=== PATIENT | female | born 1945 | race Hispanic/Latino ===

== ENCOUNTER 2017-12-13 12:48 | Outpatient (CLI) | payer MEDICARE ==
--- NOTE | 2017-12-13 14:58 | RAD ---
CERVICAL SPINE AP AND LATERAL STANDARD WITH FLEXION AND EXTENSION: Date: 12/13/17 HISTORY: M47.12 cervical spondylosis with myelopathy. COMPARISON: Cervical spine radiograph dated 10/03/17. FINDINGS: Anterolisthesis of C3 over C4 is similar to the comparison examination. This measures 3.0 mm in the n eutral position and 2.0 mm in extension, as well as 4.0 mm in flexion. In the neutral position, there is retrolisthesis of C5 over C6 2.0 mm with unchanged position and ext ension with normalization and flexion. This is due to degenerative disc space height loss. IMPRESSION: C3 over C4 anterolisthesis and C5 over C6 retrolisthesis, degenerative in nature, with translation wi th flexion and extension. POS: [facility]
--- NOTE | 2017-12-13 16:32 | MRI ---
NONCONTRAST MRI CERVICAL SPINE: 12/13/17 HISTORY: Neck pain with pain and numbness in bilateral hands and fingers for two weeks. Cervical spondylosis w ith myelopathy. COMPARISON: None available. FINDINGS: There is volume loss involving the visualized cerebellar hemispheres. There is partially empty sella turcica. Cervicomedullary junction has a normal appearance. There is mild heterogeneity of the bone m arrow. There straightening of the normal cervical lordotic curvature. There is slight anterolisthesis of C3 on C4 with slight retrolisthesis of C5 on C6. C2-3 level: There is mild disc osteophyte complex narrowing the ventral subarachnoid space. Facet hyp ertrophic changes are seen on the left. There is mild to moderate left sided neural foraminal narrowi ng. The right neural foramen is patent. C3-4 level: There is anterolisthesis of C3 on C4 as described above. There is a broad based disc oste ophyte complex with facet degenerative changes present. There is generalized narrowing of the central spinal canal with mild to moderate narrowing of the central spinal canal. There is flattening of the anterior aspect of the spinal cord. There is mild increased T2 weighted signal intensity seen in the spinal cord at this level without expansion of the cord, but findings are probably related to myelom alacia. Mild bilateral neural foraminal narrowing is present. C4-5 level: There is mild broad disc osteophyte complex with uncinate process hypertrophy greater on the left. There is mild right and moderate left sided neural foraminal narrowing. There is mild gener alized narrowing of the central spinal canal. Mild flattening of the anterior aspect of the spinal co rd is present, but there is no abnormal signal intensity in the spinal cord at this level. C5-6 level: There is slight retrolisthesis of C5 on C6. Loss of intervertebral disc height is noted. There is a broad based disc osteophyte complex noted narrowing the ventral subarachnoid space and res ulting in mild flattening of the spinal cord. Right neural foramen is patent, but there is mild to mo derate left sided neural foraminal narrowing. C6-7 level: There is a broad based disc osteophyte complex which narrows the ventral subarachnoid spa ce. There is mild right and mild to moderate left sided neural foraminal narrowing. C7-T1 level: There is a mild disc osteophyte complex, but central spinal canal is patent. Neural fora jack are not well imaged due to slice selection, but there is at least mild bilateral neural foramina l narrowing. Uncinate process hypertrophy is present on the right and there may potentially be modera te right sided neural foraminal narrowing. T1-2 level: There is trace anterolisthesis of T1 on T2. Broad based disc osteophyte complex is presen t with facet hypertrophic changes. Findings narrow the ventral subarachnoid space and there appears t o be moderate right and moderate bilateral neural foraminal narrowing. Mild disc osteophyte complex are also seen at the T2-3 and T3-4 levels. IMPRESSION: 1. Multilevel degenerative changes seen throughout the cervical spine as described above. 2. Abnormal signal intensity within the spinal cord at the C3-4 level with narrowing of the cent ral spinal canal and flattening of the anterior aspect of the spinal cord. Abnormal signal intensity is likely attributable to myelomalacia. POS: [facility]
== END 2017-12-13 12:49 | disposition home or self-care (01) ==
LOC: TBSIIMAG 12:48
PROVIDERS: ATTEND Physician Assistant
DX: M47.12 Other spondylosis with myelopathy, cervical region (principal); M43.12 Spondylolisthesis, cervical region; M48.02 Spinal stenosis, cervical region; R93.7 Abnormal findings on diagnostic imaging of other parts of musculoskeletal system
CPT/HCPCS: 72040; 72141

== ENCOUNTER 2017-12-16 10:55 | Outpatient (CLI) | payer MEDICARE ==
[2017-12-16 12:30] LABS: #Basophils 0.1 thou/uL (0.0-0.2); #Eosinphils 0.7 thou/uL (0.0-0.7); #Lymphocytes 1.8 thou/uL (1.20-3.40); #Monocytes 0.6 thou/uL (0.11-0.59); #Neutrophils 4.7 thou/uL (1.40-6.50); %Basophils 0.7 % (0.0-1.0); %Eosinophils 9.1 % (0.0-10.0); %Lymphocytes 23.4 % (21.0-51.0); %Monocytes 7.6 % (0.0-10.0); %Neutrophils 59.2 % (42.0-75.0); Hemoglobin 13.2 g/dL (12.0-16.0); Mean Corpuscular HGB CONC 33.7 g/dL (32.0-36.0); Mean Corpuscular Hemoglobin 29.8 pg (27.0-31.0); Mean Corpuscular Volume 88.5 fL (78.0-98.0); Mean Platelet Volume 6.7 fL (7.4-10.4); Platelet Count 365 thou/uL (130-400); Red Blood Cell (RBC) Count 4.42 mill/uL (4.20-5.40); White Blood Cell (WBC) Count 7.9 thou/uL (4.8-10.8)
[2017-12-16 12:54] LABS: Anion Gap 11 mmol/L (10-20); BUN (Urea Nitrogen) 17 mg/dL (9.8-20.1); Calc. Creatinine Clearance 0 mL/min (70-130); Calcium 9.7 mg/dL (7.8-10.44); Carbon Dioxide 25 mmol/L (23-31); Chloride 103 mmol/L (98-107); Estimated GFR-MDRD 78; Glucose 105 mg/dL (83-110); Sodium 135 mmol/L (136-145)
--- NOTE | 2017-12-16 16:45 | EKG ---
Test Reason : Blood Pressure : / mmHG Vent. Rate : 056 BPM Atrial Rate : 056 BPM P-R Int : 166 ms QRS Dur : 080 ms QT Int : 448 ms P-R-T Axes : 062 063 090 degrees QTc Int : 432 ms Sinus bradycardia Anteroseptal infarct , age undetermined Abnormal ECG No previous ECGs available Confirmed by DR. Jorge HOLLEY (3) on 12/16/2017 4:44:51 PM Referred By: BRYCE Confirmed By:DR. Jorge HOLLEY
== END 2017-12-16 10:56 | disposition home or self-care (01) ==
LOC: LABBT 10:55
PROVIDERS: ATTEND Neurological Surgery
DX: Z01.818 Encounter for other preprocedural examination (principal); M47.12 Other spondylosis with myelopathy, cervical region; R00.1 Bradycardia, unspecified; R94.31 Abnormal electrocardiogram [ECG] [EKG]
CPT/HCPCS: 80048; 85025; 93005; 93010

== ENCOUNTER 2017-12-19 07:20 | Day surgery (SDC) | payer MEDICARE ==
[2017-12-16 11:08] VITALS: BMI 26.7
[2017-12-19] MEDS ORDERED: Midazolam HCl 2 mg/2 ml Vial ONE (08:58)
[2017-12-19] MEDS ORDERED: CEFAZOLIN 2 GM/50 ML BAG ONE (08:58)
[2017-12-19] MEDS ORDERED: Sodium Chloride 0.9% 10 ML ONE (08:59)
[2017-12-19] MEDS ORDERED: Fentanyl 100 MCG/2 ML VIAL ONE ×2 (09:41→11:33)
--- NOTE | 2017-12-19 10:52 | OP ---
DATE OF PROCEDURE: 12/19/2017 SURGEON: Antonio Da Silva M.D. HEAD BANQUET WAITRESS: Wolf Arevalo PA-C PROCEDURE: Anterior cervical discectomy C3-4, interbody arthrodesis, intravertebral biomechanical de vice, local morselized autograft, demineralized bone matrix, anterior titanium instrumentation C3-C4. PROCEDURE IN DETAIL: The patient was brought to the operating room and intubated. She was positione d supine in modest extension on a gel-filled donut. Incision was made in the right precervical area and dissecting medial to the sternocleidomastoid muscle, identified the anterior cervical spine and o ur level was confirmed by x-ray. We placed distraction across C3-4 and using the operating microscop e and microdissection techniques, completely removed the intravertebral discs down beneath the manager monitoring ior longitudinal ligament to the level of the dura completely decompressing the spinal cord. Bony en dplates were then decorticated for the purpose of arthrodesis and appropriately sized intravertebral biomechanical PEEK device was brought into the field, filled with demineralized bone matrix and local morselized autograft, and tapped into place securely at C3-4. Next, an anterior plate was brought i n the field and secured to C3 and C4 using two 14 mm screws at each level. The wound was then extens ively irrigated, immaculate hemostasis was secured. The wound was closed in anatomic layers.
[2017-12-19] MEDS ORDERED: Labetalol HCl 100 MG/20 ML VIAL ONE (11:18)
== END 2017-12-19 14:20 | disposition home or self-care (01) ==
LOC: SDC 07:20
PROVIDERS: ATTEND Neurological Surgery
PROC: 0RG10A0 Fusion of Cervical Vertebral Joint with Interbody Fusion Device, Anterior Approach, Anterior Column, Open Approach (ICD-10-PCS; principal; 2017-12-19)
PROC: 0RT30ZZ Resection of Cervical Vertebral Disc, Open Approach (ICD-10-PCS; 2017-12-19)
DX: M47.12 Other spondylosis with myelopathy, cervical region (principal); M43.12 Spondylolisthesis, cervical region; E78.00 Pure hypercholesterolemia, unspecified; I38 Endocarditis, valve unspecified; I10 Essential (primary) hypertension; Z79.82 Long term (current) use of aspirin; Z79.899 Other long term (current) drug therapy; Z88.8 Allergy status to other drugs, medicaments and biological substances
CPT/HCPCS: 76001; 96374; C1713; C1776; J2250; J3010; J3490

== ENCOUNTER 2018-01-03 15:32 | Outpatient (CLI) | payer MEDICARE ==
--- NOTE | 2018-01-03 17:36 | RAD ---
RADIOGRAPH CERVICAL SPINE 3 VIEWS: DATE: 01-03-18 HISTORY: 72-year-old female with M47.12 cervical spondylosis with myelopathy. Status post recent surgery on . COMPARISON: 12-13-17 FINDINGS: Anterior metallic plate and screws have been placed at C3 and C4. The C3-4 disc space has been widene d, by placement of interbody graft/cage demonstrated by several small metallic markers. Grade I anter olisthesis of C3 on C4 on the current lateral view is worse than on the extension view and on the talya tral view of the 12-13-17 study. There is multilevel bilateral degenerative facet disease, including a t C3-4. There is mild to moderate DJD at the bilateral atlantoaxial joints. Vertebral body heights ar e maintained. There is post-operative prevertebral soft tissue swelling now. Diffuse osteopenia. Disc space narrowing is mild to moderate at C4-5, moderate to severe at C5-6, and mild at C6-7. IMPRESSION: 1. Status post anterior cervical discectomy and fusion at C3-4, where there is a prominent grade I sp ondylolisthesis due to facet osteoarthrosis. 2. Cervical spondylosis with degenerative disc disease and facet osteoarthrosis. JOHNATHAN POS: [facility]
== END 2018-01-03 15:33 | disposition home or self-care (01) ==
LOC: TBSIIMAG 15:32
PROVIDERS: ATTEND Neurological Surgery
DX: M47.12 Other spondylosis with myelopathy, cervical region (principal); M50.00 Cervical disc disorder with myelopathy, unspecified cervical region; M43.12 Spondylolisthesis, cervical region; Z98.1 Arthrodesis status; Z98.890 Other specified postprocedural states
CPT/HCPCS: 72040

== ENCOUNTER 2018-02-14 14:27 | Outpatient (CLI) | payer MEDICARE ==
--- NOTE | 2018-02-14 15:05 | RAD ---
CERVICAL SPINE THREE VIEWS: History: Follow up surgery. Comparison: 01-03-18 FINDINGS: Anterior cervical fusion with plate and screws is again noted at the C3-4 level. Disc implant is with in the confines of the disc levels. Disc narrowing is seen at C4-5, C5-6 with stable overall changes. IMPRESSION: Stable exam. POS: [facility]
== END 2018-02-14 14:28 | disposition home or self-care (01) ==
LOC: TBSIIMAG 14:27
PROVIDERS: ATTEND Neurological Surgery
DX: M47.12 Other spondylosis with myelopathy, cervical region (principal)
CPT/HCPCS: 72040

== ENCOUNTER 2018-09-29 09:26 | Outpatient (CLI) | payer MEDICARE ==
--- NOTE | 2018-09-29 10:06 | MMO ---
Bilateral MAMMO Bilat Screen [facility]. CLINICAL HISTORY: Patient is 73 years old and is seen for screening. The patient has the following family history of breast cancer: sister, at age 70, malignant (generic). The patient has no personal history of cancer. VIEWS: The views performed were: bilateral craniocaudal with tomosynthesis and bilateral mediolateral oblique with tomosynthesis. FILMS COMPARED: The present examination has been compared to prior imaging studies performed at [facility] on 09/16/2014, 09/18/2015, 09/20/2016 and 09/28/2017. MAMMOGRAM FINDINGS: There are scattered fibroglandular densities. There are stable benign appearing calcifications seen in both breasts. There are also vascular calcifications. There are no suspicious masses, suspicious calcifications, or new areas of architectural distortion. IMPRESSION: THERE IS NO MAMMOGRAPHIC EVIDENCE OF MALIGNANCY. A ROUTINE FOLLOW-UP MAMMOGRAM IN 1 YEAR IS RECOMMENDED. THE RESULTS OF THIS EXAM WERE SENT TO THE PATIENT. ACR BI-RADS Category 2 - Benign finding MAMMOGRAPHY NOTE: 1. A negative mammogram report should not delay a biopsy if a dominant of clinically suspicious mass is present. 2. Approximately 10% to 15% of breast cancers are not detected by mammography. 3. Adenosis and dense breasts may obscure an underlying neoplasm. Reported by: GIRISH ANDUJAR MD Electonically Signed: [id number]
== END 2018-09-29 09:27 | disposition home or self-care (01) ==
LOC: BICMAMMO 09:26
PROVIDERS: ATTEND Internal Medicine
DX: Z12.31 Encounter for screening mammogram for malignant neoplasm of breast (principal)
CPT/HCPCS: 77063; 77067

== ENCOUNTER 2020-01-09 08:40 | Outpatient (CLI) | payer MEDICARE ==
--- NOTE | 2020-01-09 09:22 | BD ---
EXAM: Bone densitometry using DEXA HISTORY: 74 yo female. Screening for postmenopausal osteoporosis FINDINGS: L1--bone mineral density 0.803 g/sq cm; T score -1.7 ; Z score 0.5 L2--bone mineral density 0.720 g/sq cm; T score -2.8 ; Z score -0.3 L3--bone mineral density 0.769 g/sq cm; T score -2.9 ; Z score -0.3 L4--bone mineral density 0.979 g/sq cm; T score -0.7 ; Z score 1.9 Total L1-L4--bone mineral density 0.81 g/sq cm; T score -2.1 ; Z score 0.4 Left femoral neck--bone mineral density0.601; T score -2.2 ; Z score -0.2 Total proximal left femur--bone mineral density 0.829; T score -0.9 ; Z score 0.9 The 10 year fracture risk for a major osteoporotic fracture is 8.4% and for a hip fracture is 2.4%. IMPRESSION: Osteopenia
--- NOTE | 2020-01-09 11:21 | MMO ---
Bilateral MAMMO Bilat Screen [facility]. CLINICAL HISTORY: Patient is 74 years old and is seen for screening. The patient has the following family history of breast cancer: sister, at age 70, malignant (generic). The patient has no personal history of cancer. VIEWS: The views performed were: bilateral craniocaudal with tomosynthesis and bilateral mediolateral oblique with tomosynthesis. FILMS COMPARED: The present examination has been compared to prior imaging studies performed at [facility] on 09/18/2015, 09/20/2016, 09/28/2017 and 09/29/2018. This study has been interpreted with the assistance of computer-aided detection. MAMMOGRAM FINDINGS: The breasts are heterogeneously dense, which could obscure a lesion on mammography. Benign calcifications are noted bilaterally. There are no suspicious masses, suspicious calcifications, or new areas of architectural distortion. IMPRESSION: THERE IS NO MAMMOGRAPHIC EVIDENCE OF MALIGNANCY. A ROUTINE FOLLOW-UP MAMMOGRAM IN 1 YEAR IS RECOMMENDED. THE RESULTS OF THIS EXAM WERE SENT TO THE PATIENT. ACR BI-RADS Category 2 - Benign finding MAMMOGRAPHY NOTE: 1. A negative mammogram report should not delay a biopsy if a dominant of clinically suspicious mass is present. 2. Approximately 10% to 15% of breast cancers are not detected by mammography. 3. Adenosis and dense breasts may obscure an underlying neoplasm. Reported by: BRAULIO WELLS MD Electonically Signed: [id number]
== END 2020-01-09 08:41 | disposition home or self-care (01) ==
LOC: BICMAMMO 08:40
PROVIDERS: ATTEND Family Medicine
DX: Z12.31 Encounter for screening mammogram for malignant neoplasm of breast (principal); Z13.820 Encounter for screening for osteoporosis; N95.1 Menopausal and female climacteric states; M85.89 Other specified disorders of bone density and structure, multiple sites; Z80.3 Family history of malignant neoplasm of breast
CPT/HCPCS: 77063; 77067; 77080

== ENCOUNTER 2021-01-12 08:48 | Outpatient (CLI) | payer MEDICARE | END 2021-01-12 08:49 | disposition home or self-care (01) | LOC: BICMAMMO 08:48 | PROVIDERS: ATTEND Family Medicine | DX: Z12.31 Encounter for screening mammogram for malignant neoplasm of breast (principal); Z80.3 Family history of malignant neoplasm of breast | CPT/HCPCS: 77063; 77067 ==

== ENCOUNTER 2021-05-07 17:40 | Emergency (ER) | payer MEDICARE ==
[2021-05-07] MEDS ORDERED: Ondansetron PF 4 MG/2 ML Vial ONE (18:06)
[2021-05-07] MEDS ORDERED: Promethazine HCl 25 MG/ML VIAL ONE (19:08)
[2021-05-07 21:10] LABS: #Basophils 0.2 thou/uL (0.0-0.2); #Eosinphils 0.4 thou/uL (0.0-0.7); #Lymphocytes 3.6 thou/uL (1.20-3.40); #Monocytes 0.5 thou/uL (0.11-0.59); #Neutrophils 3.7 thou/uL (1.40-6.50); %Basophils 2.3 % (0.0-1.0); %Eosinophils 4.8 % (0.0-10.0); %Lymphocytes 42.5 % (21.0-51.0); %Monocytes 6.3 % (0.0-10.0); %Neutrophils 44.2 % (42.0-75.0); Hemoglobin 13.1 g/dL (12.0-16.0); Mean Corpuscular HGB CONC 32.5 g/dL (32.0-36.0); Mean Corpuscular Hemoglobin 29.3 pg (27.0-31.0); Mean Corpuscular Volume 90.1 fL (78.0-98.0); Mean Platelet Volume 7.3 fL (7.4-10.4); Platelet Count 363 thou/uL (130-400); RBC Distribution Width 12.2 % (11.5-14.5); Red Blood Cell (RBC) Count 4.49 mill/uL (4.20-5.40); White Blood Cell (WBC) Count 8.4 thou/uL (4.8-10.8)
[2021-05-07 21:27] LABS: Anion Gap 14 mmol/L (10-20); BUN (Urea Nitrogen) 16 mg/dL (9.8-20.1); Calc. Creatinine Clearance 0 mL/min (70-130); Carbon Dioxide 27 mmol/L (23-31); Chloride 97 mmol/L (98-107); Potassium 3.3 mmol/L (3.5-5.1); Sodium 135 mmol/L (136-145)
[2021-05-07 21:28] LABS: ALT (SGPT) 32 U/L (8-55); AST (SGOT) 31 U/L (5-34); Albumin 4.3 g/dL (3.4-4.8); Alkaline Phosphatase 64 U/L (40-110); Bilirubin, Total 0.6 mg/dL (0.2-1.2); Calcium 9.6 mg/dL (7.8-10.44); Glucose 163 mg/dL (83-110); Lipase 64 U/L (8-78); Protein, Total 7.3 g/dL (5.8-8.1)
[2021-05-07] MEDS ORDERED: Metoclopramide HCl 10 MG/2 ML VIAL ONE (21:33)
[2021-05-07] MEDS ORDERED: diphenhydrAMINE 50 MG/ML VIAL ONE (21:33)
== END 2021-05-07 23:05 | disposition home or self-care (01) ==
LOC: ERS 17:40
DX: S06.0X0A Concussion without loss of consciousness, initial encounter (principal); S00.03XA Contusion of scalp, initial encounter; R11.2 Nausea with vomiting, unspecified; I10 Essential (primary) hypertension; Z79.82 Long term (current) use of aspirin; Z79.899 Other long term (current) drug therapy; W01.10XA Fall on same level from slipping, tripping and stumbling with subsequent striking against unspecified object, initial encounter
CPT/HCPCS: 70450; 72125; 80053; 83690; 85025; 96365; 96375; J1200; J2405; J2550; J2765

== ENCOUNTER 2021-10-22 18:21 | Emergency (ER) | payer MEDICARE | END 2021-10-22 20:31 | disposition home or self-care (01) | LOC: ERS 18:21 | DX: S09.90XA Unspecified injury of head, initial encounter (principal); I10 Essential (primary) hypertension; E78.5 Hyperlipidemia, unspecified; Z79.82 Long term (current) use of aspirin; Z79.899 Other long term (current) drug therapy | CPT/HCPCS: 70450 ==

== ENCOUNTER 2022-01-08 07:47 | Outpatient (CLI) | payer MEDICARE | END 2022-01-08 07:48 | disposition home or self-care (01) | LOC: BICMAMMO 07:47 | PROVIDERS: ATTEND Family Medicine | DX: Z13.820 Encounter for screening for osteoporosis (principal); N95.9 Unspecified menopausal and perimenopausal disorder; M81.0 Age-related osteoporosis without current pathological fracture; M85.851 Other specified disorders of bone density and structure, right thigh; M85.852 Other specified disorders of bone density and structure, left thigh | CPT/HCPCS: 77080 ==

== ENCOUNTER 2022-02-11 08:34 | Outpatient (CLI) | payer MEDICARE | END 2022-02-11 08:35 | disposition home or self-care (01) | LOC: BICMAMMO 08:34 | PROVIDERS: ATTEND Family Medicine | DX: Z12.31 Encounter for screening mammogram for malignant neoplasm of breast (principal); R92.1 Mammographic calcification found on diagnostic imaging of breast; Z80.3 Family history of malignant neoplasm of breast | CPT/HCPCS: 77063; 77067 ==

== ENCOUNTER 2023-03-14 11:39 | Outpatient (CLI) | payer MEDICARE, OTHER | END 2023-03-14 11:40 | disposition home or self-care (01) | LOC: BICMAMMO 11:39 | PROVIDERS: ATTEND Family Medicine | DX: Z12.31 Encounter for screening mammogram for malignant neoplasm of breast (principal); Z80.3 Family history of malignant neoplasm of breast | CPT/HCPCS: 77063; 77067 ==